=== PATIENT | male | born 1980 | race Two or more races ===

== ENCOUNTER 2018-09-17 13:30 | Emergency (ER) | payer OTHER ==
[~2018-09-17] VITALS: Ht 182.9 cm; Wt 113.4 kg
[2018-09-17] MEDS ORDERED: METFORMIN HCL500 MG (14:13)
[2018-09-17] MEDS ORDERED: LEVAQUIN750 MG PO (20:36)
[2018-09-17] MEDS ORDERED: KETO10TA2 PO (20:36)
== END 2018-09-17 21:30 | disposition home or self-care (01) ==
LOC: ER 13:30
DX: L97.518 Non-pressure chronic ulcer of other part of right foot with other specified severity (principal)